=== PATIENT | male | born 1955 | race Caucasian/White ===

== ENCOUNTER 2018-11-15 14:20 | Emergency (ER) | payer BC, OTHER ==
[2018-11-15 14:49] VITALS: BP 139/83
--- NOTE | 2018-11-15 17:02 | ED ---
Back Pain - HPI Summary HPI Summary: pt fell while at work on Sunday. he was doing well until this am. he states he coughed and felt a pop. he denies feeling light headed or dizzy. he denies any blood in his urine. he presents to the with his . - History of Current Complaint Chief Complaint: UCUpperExtremity Stated Complaint: WC-RIB CONCERN Hx Obtained From: Patient, Family/Supervisor Garage Onset/Duration: Started Hours Ago Timing: Constant Severity Initially: Mild Severity Currently: Mild Pain Intensity: 4 - Allergies/Home Medications Allergies/Adverse Reactions: Allergies Allergy/AdvReac Type Severity Reaction Status Date / Time No Known Allergies Allergy Verified 11/15/18 14:40 Home Medications: Home Medications Atorvastatin* [Lipitor*] 10 mg PO QPM 11/15/18 [History Confirmed 11/15/18] Blood Pressure Med 1 tab QAM 11/15/18 [History Confirmed 11/15/18] Tamsulosin CAP* [Flomax CAP*] 0.4 mg PO DAILY 11/15/18 [History Confirmed ] PMH/Surg Hx/FS Hx/Imm Hx Previously Healthy: Yes Endocrine/Hematology History: Denies: Hx Diabetes Cardiovascular History: Reports: Hx Hypertension Respiratory History: Denies: Hx Asthma, Hx Chronic Obstructive Pulmonary Disease (COPD) - Surgical History Surgery Procedure, Year, and Place: left wrist surgery. right knee surgery Infectious Disease History: No Infectious Disease History: Denies: Traveled Outside the [place] in Last 30 Days - Social History Alcohol Use: Occasionally Substance Use Type: Reports: None Smoking Status (MU): Former Smoker Review of Systems Constitutional: Negative Eyes: Negative ENT: Negative Cardiovascular: Negative Respiratory: Negative Gastrointestinal: Negative Genitourinary: Negative Positive: Myalgia Skin: Negative Neurological: Negative Psychological: Normal All Other Systems Reviewed And Are Negative: No Physical Exam Triage Information Reviewed: Yes Vital Signs On Initial Exam: Initial Vitals Temp Pulse Resp BP Pulse Ox 97.8 F 74 16 139/83 96 11/15/18 14:42 11/15/18 14:42 11/15/18 14:42 11/15/18 14:42 11/15/18 14:42 Vital Signs Reviewed: Yes Appearance: Positive: Well-Appearing, No Pain Distress, Well-Nourished Skin: Positive: Warm, Dry, Other - bruising and an abrasion to the left lower flank area Eyes: Positive: Normal, EOMI ENT: Positive: Hearing grossly normal Neck: Positive: Supple, Nontender Respiratory/Lung Sounds: Positive: Clear to Auscultation, Breath Sounds Present Cardiovascular: Positive: Normal, RRR Abdomen Description: Positive: Nontender, Soft Bowel Sounds: Positive: Present Musculoskeletal: Positive: Strength/ROM Intact, Other - tender to right lower flank area. Neurological: Positive: Normal, Sensory/Motor Intact, Alert, Oriented to Person Place, Time, CN Intact II-III Psychiatric: Positive: Normal, Affect/Mood Appropriate AVPU Assessment: Alert Diagnostics - Vital Signs Vital Signs Temp Pulse Resp BP Pulse Ox 11/15/18 14:42 97.8 F 74 16 139/83 96 - Laboratory Lab Results: Lab Results 11/15/18 Range/Units 16:41 POC Urine Color Yellow POC Urine Clarity Clear POC Urine pH 5.5 (5-9) POC Ur Specif [place] >= 1.030 (1.010-1.030) POC Urine Protein Negative (Negative) POC Ur Glucose (UA) Negative (Negative) POC Urine Ketones Trace A (Negative) POC Urine Blood Negative (Negative) POC Urine Nitrite Negative (Negative) POC Urine Bilirubin Negative (Negative) POC Urine Urobilinogen 0.2 (Negative) POC U Leukocyte Esteras Negative (Negative) Lab Statement: Any lab studies that have been ordered have been reviewed, and results considered in the medical decision making process. Back Pain Course/Dx - Course Course Of Treatment: urinalysis shows no blood in the urine. xrays of tspine, lspine, chest and right ribs show no frx. I discussed with pt the importance of f/u. pt to return if worse or any new symptoms. pt comfortable with the plan. - Diagnoses Provider Diagnoses: Abrasion, Contusion Discharge - Sign-Out/Discharge Documenting (check all that apply): Patient Departure All imaging exams completed and their final reports reviewed: Yes - Discharge Plan Condition: Stable Disposition: HOME Patient Education Materials: Low Back Strain (ED), Contusion in Adults (ED) Referrals: Ania Gallagher PA [Primary Care Provider] - Additional Instructions: Please take tylenol and motrin for pain. return if worse or any new symptoms. It is important to follow up with your primary care physician during the beginning of the week. - Billing Disposition and Condition Condition: STABLE Disposition: Home
== END 2018-11-15 17:10 | disposition home or self-care (01) ==
LOC: UCCORT 14:20
DX: S20.219A Contusion of unspecified front wall of thorax, initial encounter (principal); X50.9XXA Other and unspecified overexertion or strenuous movements or postures, initial encounter; I10 Essential (primary) hypertension; Z79.899 Other long term (current) drug therapy; Z87.891 Personal history of nicotine dependence; M47.896 Other spondylosis, lumbar region; J98.11 Atelectasis
CPT/HCPCS: 71046; 72070; 72100; 81003; 99201; G0463